=== PATIENT | female | born 1960 | race Two or more races ===

== ENCOUNTER 2024-09-20 13:26 | Emergency (ER) | payer OTHER, SELFPAY ==
[2024-09-20 13:26] VITALS: BMI 28.1
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
--- NOTE | 2024-09-20 14:07 | ESOP_ITS ---
Procedures Procedure Date / Time 09/20/24 1334 Intubation Indication(s): acute Resp Failure and inability to protect airway Informed consent obtained: procedure done urgently Time out done, and the following verified: correct patient, procedure, patient position and implants and/or equipment Sedative: none Sedative #2: none Paralytic: other Laryngoscope: fiber optic video scope Assist device used: fiber optic device ET tube size: 7.5 ET tube uncuffed: Yes Tube secured depth (cm): 21 Tube secured location: teeth Tube placement confirmation: visualized tube passing through cords, equal breath sounds bilaterally, no breath sounds over epigastrium and confirmation by capnometry Patient tolerated procedure: well EBL(ml): 0 Intubation complications: none Additional comments: Patient was intubated under supervision of Dr. Castillo. Pan Montes MD, PGY 2. Disclaimer: This note was dictated by speech recognition. Minor errors in roll or tape edge machine operator may be present due to voice recognition software.
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
--- NOTE | 2024-09-20 16:20 | PC.CC ---
1328-Pt arrived to ED with CPR in progress. APPLICATIONS SYSTEMS ANALYST CC with ED attending Dr. Castillo met with pts Marcus Martinez [phone]. Dr. Castillo informed pts that pt has . APPLICATIONS SYSTEMS ANALYST CC remained with pts and offered support. APPLICATIONS SYSTEMS ANALYST CC coordinated for Mr. Martinez to sit at bedside with pt. Mr. Martinez has selected on-call mortuary to collect pts remains. APPLICATIONS SYSTEMS ANALYST CC will remain available as needed for pt care and staff support.
== END 2024-09-20 15:57 | disposition expired ==
PROVIDERS: Emergency Provider Emergency Medicine; PCP Internal Medicine
DX: I46.9 Cardiac arrest, cause unspecified (principal)
CPT/HCPCS: 31500; 92950; 99291; J0171